=== PATIENT | male | born 1980 | race Hispanic/Latino ===

== ENCOUNTER → 2021-05-30 | Day surgery (SDC) | payer BC, OTHER ==
[~2021-05-30] MED LIST: ALLOPURINOL100 MG PO; AMLODIPINE BESY10 MG PO; BUPIVACAINE HCL 0.5% INJ 30 ML VIAL INJ ONE; CEFTRIAXONE 1 GM VIAL ONE; FENTANYL CITRATE/PF 100MCG/2 ML INJ ONE; GEMFIBROZIL600 MG PO; HYGROTON25 MG PO; LOSARTAN POTAS100 MG PO; MONTELUKAST SOD10 MG PO; PRAVASTATIN SOD40 MG PO; PRINIVIL10 MG PO; SODIUM CHLORIDE 0.9% 50ML 100 ML ONE; SODIUM CHLORIDE 0.9% 50ML 50 ML ONE
[2021-05-30 11:04] VITALS: BP 122/76
== END | disposition home or self-care (01) ==
LOC: OR 07:17
PROVIDERS: ATTEND Orthopaedic Surgery
DX: G56.22 Lesion of ulnar nerve, left upper limb (principal); M66.232 Spontaneous rupture of extensor tendons, left forearm; M77.12 Lateral epicondylitis, left elbow; S53.22XA Traumatic rupture of left radial collateral ligament, initial encounter; G47.33 Obstructive sleep apnea (adult) (pediatric); R42 Dizziness and giddiness; I10 Essential (primary) hypertension; K21.9 Gastro-esophageal reflux disease without esophagitis; X58.XXXA Exposure to other specified factors, initial encounter; Z01.810 Encounter for preprocedural cardiovascular examination; Z01.812 Encounter for preprocedural laboratory examination; Z20.822 Contact with and (suspected) exposure to COVID-19
CPT/HCPCS: 24359; 93005; J0690; J0696; J3010; U0002

== ENCOUNTER → 2024-12-23 | Outpatient (REF) | payer BC ==
[~2024-12-23] MED LIST changes: -BUPIVACAINE HCL 0.5% INJ 30 ML VIAL INJ ONE; -CEFTRIAXONE 1 GM VIAL ONE; -FENTANYL CITRATE/PF 100MCG/2 ML INJ ONE; +IOPAMIDOL 370 MG/ML 100 ML INFUS..BTL INJ ONE; +METOPROLOL TARTRATE INJ 1 MG/ML VIAL ONE; +NITROGLYCERIN 0.4 MG SUBL ONE; +SODIUM CHLORIDE 0.9% 100 ML ONE; -SODIUM CHLORIDE 0.9% 50ML 100 ML ONE; -SODIUM CHLORIDE 0.9% 50ML 50 ML ONE
[2024-12-23 09:03] LABS: CREATININE, SERUM 0.85 mg/dL (0.72-1.25)
== END ==
LOC: CT 07:32
PROVIDERS: ATTEND Family Medicine
DX: I10 Essential (primary) hypertension (principal); E78.2 Mixed hyperlipidemia
CPT/HCPCS: 36415; 75574; 82565; 84520; J7050; Q9967